=== PATIENT | male | born 1960 | race Caucasian/White ===

== ENCOUNTER → 2019-01-09 | Emergency (ER) | payer BC ==
[~2019-01-09] MED LIST: Ibuprofen 800 MG TAB ONE; traMADol HCl 50 MG TAB ONE
--- NOTE | 2019-01-09 18:01 | RAD ---
RIGHT SHOULDER THREE VIEWS: 01/09/19 No fracture, dislocation, or AC joint widening was seen. There is no periarticular calcification. The adjacent lung is clear. IMPRESSION: No acute finding. POS: HOME
== END ==
LOC: BURERS 10:46
DX: M25.511 Pain in right shoulder (principal); I10 Essential (primary) hypertension; F17.210 Nicotine dependence, cigarettes, uncomplicated; Z79.899 Other long term (current) drug therapy